=== PATIENT | female | born 1975 | race Caucasian/White ===

== ENCOUNTER 2021-04-27 22:49 | Emergency (ER) | payer SELFPAY ==
[~2021-04-27] VITALS: Ht 162.5 cm; Wt 63.5 kg
[2021-04-27] MEDS ORDERED: CLARITIN10 MG PO (23:08)
[2021-04-27] MEDS ORDERED: MAXIMUM DAILY1 EACH PO (23:08)
== END 2021-04-28 06:49 | disposition left against medical advice (07) ==
LOC: ED 22:49
DX: M54.9 Dorsalgia, unspecified (principal); R11.10 Vomiting, unspecified; Z53.21 Procedure and treatment not carried out due to patient leaving prior to being seen by health care provider